=== PATIENT | female | born 1950 | race Caucasian/White ===

== ENCOUNTER → 2016-08-30 | Outpatient (CLI) | payer MEDICARE ==
[~2016-08-30] MED LIST: AMBIEN10 MG PO; APIDRA SOL100 UNIT/1 SC; ASPIRIN81 MG PO; ATACAND32 MG PO; BYSTOLIC20 MG PO; BYSTOLIC5 MG PO; CATAPRES 0.1MG0.1 MG PO; CATAPRES-TTS 11 EACH TD; CITALOPRAM HBR40 MG PO; DIOVAN320 MG PO; ELAVIL 10 MG TA10 MG PO; FLAGYL500 MG PO; GLYCOLAX527 GM PO; HYDROCODON-ACE1 EAC6 PO; INVOKANA300 MG PO; KLOR-CON M2020 MEQ PO; LACTINEX PACKET1 PKT PO; LEVEMIR 10100 UNITS/ SQ; LISINOPRIL20 MG PO; MAGNESIUM OXID400 MG PO; METFORMIN HCL1000 MG PO; MIRAPEX0.5 MG PO; NEURONTIN 300300 MG PO; NORVASC 5 MG TAB5 MG PO; PHENAZOPYRIDIN200 MG PO; PHENERGAN 25 MG25 M1 PO; POTASSIUM CHLO20 ME2 PO; PROAIR HFA8.5 GM INH; SYNTHROID 25 M25 MCG PO; TRAZODONE HCL100 MG PO
== END ==
DX: R10.9 Unspecified abdominal pain (principal); N20.0 Calculus of kidney; M54.16 Radiculopathy, lumbar region; M48.07 Spinal stenosis, lumbosacral region; M51.27 Other intervertebral disc displacement, lumbosacral region; Z88.5 Allergy status to narcotic agent; Z88.2 Allergy status to sulfonamides
CPT/HCPCS: 72148; J7050; Q9962

== ENCOUNTER → 2016-09-02 | Outpatient (CLI) | payer MEDICARE ==
[2016-09-02 11:25] LABS: BUN/CREATININE RATIO 16 (0-10)
== END ==
LOC: OPSV 10:42
PROVIDERS: Physician Assistant
DX: E87.6 Hypokalemia (principal); E83.42 Hypomagnesemia; Z88.5 Allergy status to narcotic agent
CPT/HCPCS: 36415; 80048; 80053; 83735; 85025; 96360; 96361; J2405; J3475; J7040

== ENCOUNTER 2016-10-05 07:38 | Inpatient (IN) | payer MEDICARE ==
[~2016-10-05] VITALS: Ht 172.7 cm; Wt 75.8 kg
[~2016-10-05 07:38] MED LIST changes: -BYSTOLIC5 MG PO; -DIOVAN320 MG PO; -ELAVIL 10 MG TA10 MG PO; -GLYCOLAX527 GM PO; -KLOR-CON M2020 MEQ PO; -PHENAZOPYRIDIN200 MG PO; -PHENERGAN 25 MG25 M1 PO
[2016-10-05 08:29] LABS: HEMOGLOBIN 13.9 gm/dl (12.3-15.3); RED BLOOD COUNT 4.91 M/UL (4.00-5.10); WHITE BLOOD COUNT 7.6 K/UL (4.5-11.0)
[2016-10-05 08:42] LABS: BUN/CREATININE RATIO 28 (0-10)
[2016-10-05] MEDS ORDERED: ELAVIL 10 MG TA10 MG PO (14:47)
[2016-10-05] MEDS ORDERED: BYSTOLIC5 MG PO (14:49)
[2016-10-05] MEDS ORDERED: PHENAZOPYRIDIN200 MG PO (14:52)
[2016-10-05] MEDS ORDERED: GLYCOLAX527 GM PO (14:54)
[2016-10-05] MEDS ORDERED: KLOR-CON M2020 MEQ PO (15:05)
[2016-10-05] MEDS ORDERED: TRAZODONE HCL100 MG PO (15:07)
[2016-10-05] MEDS ORDERED: PHENERGAN 25 MG25 M1 PO (15:07)
[2016-10-05] MEDS ORDERED: DIOVAN320 MG PO (15:08)
[2016-10-05] MEDS ORDERED: AMBIEN10 MG PO (15:10)
[2016-10-06 05:06] LABS: HEMOGLOBIN 14.1 gm/dl (12.3-15.3); RED BLOOD COUNT 5.01 M/UL (4.00-5.10); WHITE BLOOD COUNT 9.9 K/UL (4.5-11.0)
[2016-10-06 05:20] LABS: BUN/CREATININE RATIO 18 (0-10)
[2016-10-07 04:56] LABS: HEMOGLOBIN 15.6 gm/dl (12.3-15.3); RED BLOOD COUNT 5.51 M/UL (4.00-5.10); WHITE BLOOD COUNT 12.2 K/UL (4.5-11.0)
[2016-10-07 05:16] LABS: BUN/CREATININE RATIO 24 (0-10)
[2016-10-08 06:03] LABS: HEMOGLOBIN 15.8 gm/dl (12.3-15.3); RED BLOOD COUNT 5.62 M/UL (4.00-5.10); WHITE BLOOD COUNT 13.3 K/UL (4.5-11.0)
[2016-10-08 06:19] LABS: BUN/CREATININE RATIO 45 (0-10)
[2016-10-09 07:15] LABS: HEMOGLOBIN 15.5 gm/dl (12.3-15.3); RED BLOOD COUNT 5.45 M/UL (4.00-5.10); WHITE BLOOD COUNT 11.7 K/UL (4.5-11.0)
[2016-10-09 07:29] LABS: BUN/CREATININE RATIO 38 (0-10)
[2016-10-10 06:29] LABS: HEMOGLOBIN 15.3 gm/dl (12.3-15.3); RED BLOOD COUNT 5.39 M/UL (4.00-5.10); WHITE BLOOD COUNT 12.8 K/UL (4.5-11.0)
[2016-10-10 06:50] LABS: BUN/CREATININE RATIO 40 (0-10)
[2016-10-11 06:37] LABS: HEMOGLOBIN 14.5 gm/dl (12.3-15.3); RED BLOOD COUNT 5.06 M/UL (4.00-5.10); WHITE BLOOD COUNT 11.9 K/UL (4.5-11.0)
[2016-10-11 06:52] LABS: BUN/CREATININE RATIO 36 (0-10)
[2016-10-12 05:50] LABS: HEMOGLOBIN 14.6 gm/dl (12.3-15.3); RED BLOOD COUNT 5.12 M/UL (4.00-5.10); WHITE BLOOD COUNT 10.6 K/UL (4.5-11.0)
[2016-10-12 06:18] LABS: BUN/CREATININE RATIO 34 (0-10)
== END 2016-10-12 17:00 | DRG 65 ==
LOC: ER1 07:38 → CCU 11:04 → ZEROF 11:04 → CCU 15:23 → M/S 10-07 13:31
PROVIDERS: Emergency Medicine; Internal Medicine; ADMIT Family Medicine
PROC: B246ZZ4 Ultrasonography of Right and Left Heart, Transesophageal (ICD-10-PCS; principal; 2016-10-05)
DX: I63.511 Cerebral infarction due to unspecified occlusion or stenosis of right middle cerebral artery (principal); G81.94 Hemiplegia, unspecified affecting left nondominant side; N30.00 Acute cystitis without hematuria; I50.30 Unspecified diastolic (congestive) heart failure; R13.12 Dysphagia, oropharyngeal phase; R47.02 Dysphasia; R29.810 Facial weakness; I10 Essential (primary) hypertension; E11.9 Type 2 diabetes mellitus without complications; F17.210 Nicotine dependence, cigarettes, uncomplicated; R33.9 Retention of urine, unspecified; R32 Unspecified urinary incontinence; Q15.8 Other specified congenital malformations of eye; G25.81 Restless legs syndrome; M51.9 Unspecified thoracic, thoracolumbar and lumbosacral intervertebral disc disorder; G62.9 Polyneuropathy, unspecified; F32.9 Major depressive disorder, single episode, unspecified; G47.00 Insomnia, unspecified; I25.10 Atherosclerotic heart disease of native coronary artery without angina pectoris; J44.9 Chronic obstructive pulmonary disease, unspecified; K21.9 Gastro-esophageal reflux disease without esophagitis; E78.5 Hyperlipidemia, unspecified; M19.90 Unspecified osteoarthritis, unspecified site; N20.0 Calculus of kidney; Z90.49 Acquired absence of other specified parts of digestive tract; Z98.890 Other specified postprocedural states; Z90.710 Acquired absence of both cervix and uterus; Z88.2 Allergy status to sulfonamides; Z79.899 Other long term (current) drug therapy; Z79.82 Long term (current) use of aspirin; Z79.4 Long term (current) use of insulin; Z82.49 Family history of ischemic heart disease and other diseases of the circulatory system; Z83.3 Family history of diabetes mellitus; E87.6 Hypokalemia; Z51.89 Encounter for other specified aftercare; E83.42 Hypomagnesemia; R94.31 Abnormal electrocardiogram [ECG] [EKG]
CPT/HCPCS: ECHO; 36415; 70450; 70544; 70551; 71010; 74230; 80048; 80053; 80061; 81001; 82550; 82553; 82962; 83735; 83874; 83880; 84132; 84439; 84443; 84484; 85025; 85027; 85303; 85610; 85730; 87040; 87077; 87086; 87186; 92526; 92610; 92611-GN; 93005; 93306; 93312; 93320; 93880; 94664; 97110; 97112; 97530; 97535; 99285; J0360; J0696; J1650; J2250; J2405; J3010; J3480; J7030